=== PATIENT | male | born 1960 | race Caucasian/White ===

== ENCOUNTER 2020-02-18 15:44 | Emergency (ER) | payer OTHER ==
[~2020-02-18 15:44] MED LIST: ASPIRIN EC81 MG PO; IBU800 MG PO; LIPITOR TAB 2020 MG PO; LOVENOX SY30 MG/0.3 SQ; MEDROL DOSEPAK 24 MG PO; NORVASC 5 MG TAB5 MG PO; PERCOCET 10-321 EACH PO; TOBRAMYCIN5 ML OS
[2020-02-18] MEDS ORDERED: DIFLUCAN150 MG PO ×2 (18:22→18:30)
[2020-02-18] MEDS ORDERED: MYCOSTATIN100000 UTS PO ×2 (18:25→18:31)
== END 2020-02-18 18:49 | disposition home or self-care (01) ==
LOC: ER1 15:44
DX: B37.0 Candidal stomatitis (principal); Z88.8 Allergy status to other drugs, medicaments and biological substances; Z20.828 Contact with and (suspected) exposure to other viral communicable diseases
CPT/HCPCS: 82962; 87081; 87880; 99283; U0002

== ENCOUNTER → 2020-05-05 | Outpatient (CLI) | payer OTHER ==
[~2020-05-05] MED LIST changes: +DIFLUCAN150 MG PO; +MYCOSTATIN100000 UTS PO
== END ==
LOC: RAD 14:39
DX: J20.9 Acute bronchitis, unspecified (principal)
CPT/HCPCS: 71046

== ENCOUNTER 2020-07-28 15:43 | Emergency (ER) | payer OTHER ==
[2020-07-28] MEDS ORDERED: MEDROL DOSEPAK 24 MG PO (16:24)
== END 2020-07-28 17:05 | disposition home or self-care (01) ==
LOC: ER1 15:43
DX: L25.5 Unspecified contact dermatitis due to plants, except food (principal); I10 Essential (primary) hypertension; F17.200 Nicotine dependence, unspecified, uncomplicated
CPT/HCPCS: 96372; 99283; J2930

== ENCOUNTER 2021-07-29 16:45 | Emergency (ER) | payer OTHER | END 2021-07-29 16:58 | disposition left against medical advice (07) | LOC: ER1 16:45 | DX: Z53.21 Procedure and treatment not carried out due to patient leaving prior to being seen by health care provider (principal) ==

== ENCOUNTER 2021-08-08 11:22 | Emergency (ER) | payer OTHER ==
[2021-08-08] MEDS ORDERED: PREDNISONE 20 M20 MG PO (11:42)
== END 2021-08-08 11:57 | disposition home or self-care (01) ==
LOC: ER1 11:22
DX: L23.7 Allergic contact dermatitis due to plants, except food (principal); I10 Essential (primary) hypertension; F17.210 Nicotine dependence, cigarettes, uncomplicated; Z88.8 Allergy status to other drugs, medicaments and biological substances
CPT/HCPCS: 96372; 99282; J1100

== ENCOUNTER → 2021-08-09 | Outpatient (CLI) | payer OTHER ==
[~2021-08-09] MED LIST changes: +PREDNISONE 20 M20 MG PO
== END ==
LOC: HEART 5 08-01 13:26
DX: I10 Essential (primary) hypertension (principal); R20.0 Anesthesia of skin; R20.2 Paresthesia of skin; G62.9 Polyneuropathy, unspecified
CPT/HCPCS: 93970

== ENCOUNTER 2021-08-16 22:26 | Emergency (ER) | payer OTHER ==
[2021-08-17 01:35] LABS: HEMOGLOBIN 15.6 gm/dl (14.0-17.5); RED BLOOD COUNT 5.07 M/UL (4.20-5.50); WHITE BLOOD COUNT 10.1 K/UL (4.5-11.0)
[2021-08-17 01:53] LABS: BUN/CREATININE RATIO 13 (0-10)
== END 2021-08-17 02:45 | disposition left against medical advice (07) ==
LOC: ER1 22:26
PROVIDERS: Family Medicine
DX: R03.0 Elevated blood-pressure reading, without diagnosis of hypertension (principal); R07.9 Chest pain, unspecified; Z88.8 Allergy status to other drugs, medicaments and biological substances; F17.200 Nicotine dependence, unspecified, uncomplicated; Z51.81 Encounter for therapeutic drug level monitoring
CPT/HCPCS: 70450; 71045; 80053; 82550; 82553; 84484; 85025; 85610; 87081; 87880; 93005; 99283

== ENCOUNTER → 2021-11-08 | Outpatient (CLI) | payer OTHER ==
[~2021-11-08] MED LIST changes: +CLONIDINE HCL0.1 MG PO; +EPIPEN 2-P0.3 MG/0.3 INJ; +GABAPENTIN600 MG PO
[2021-11-08 10:44] LABS: BUN/CREATININE RATIO 23 (0-10)
== END ==
LOC: LAB 10:01
PROVIDERS: Internal Medicine Infectious Disease
DX: N17.9 Acute kidney failure, unspecified (principal)
CPT/HCPCS: 36415; 80048